=== PATIENT | female | born 2000 | race Caucasian/White ===

== ENCOUNTER 2023-02-01 03:34 | Emergency (ER) | payer OTHER, SELFPAY ==
[2023-02-01 03:37] VITALS: BP 110/77; PULSE 65; RESP 16; TEMP 36.4; O2SAT 97; BMI 20.8
--- NOTE | 2023-02-01 03:49 | ED_ITS ---
HPI - Ear Problem General Chief complaint: Ear Stated complaint: LT EAR PAIN Time Seen by Provider: 02/01/23 03:46 Mode of arrival: walk-in History of Present Illness HPI Narrative: presents complaining of ear pain that started last PM and also left pink eye. No visual complaint. Took Tylenol for the ear pain without relief. No headache or dizziness or vision complaint MD Complaint: Reports ear pain Related Data Home Medications Medication Instructions Recorded Confirmed drospirenone 3 mg-ethinyl tab 02/01/23 estradiol 0.02 mg tablet (Vestura (28)) Allergies Allergy/AdvReac Type Severity Reaction Status Date / Time Penicillins Allergy Intermediate Hives Verified 02/01/23 03:43 Review of Systems ROS Status of ROS 10 or more systems reviewed and unremarkable except as noted in history and below [facility] Social History Smoking status: Never smoker Exam Constitutional Vital Signs, click to edit/add: Last Vital Signs Temp 97.6 F 02/01/23 03:37 Pulse 65 02/01/23 03:37 Resp 16 02/01/23 03:37 BP 110/77 02/01/23 03:37 Pulse Ox 97 02/01/23 03:37 O2 Del Method Room Air 02/01/23 03:37 Common normals: no apparent distress, average body habitus, oriented x3, no limitations and healthy appearing HENMT Other: left TM red Eye Common normals: EOMs intact bilaterally Other: left conjunctiva injected Respiratory Common normals: normal respiratory effort, no retractions, no use of accessory muscles and clear to auscultation bilaterally Cardio Common normals: regular rate, regular rhythm, S1 normal heart sound and S2 normal heart sound GI Common normals: Normal to inspection, nondistended, normoactive bowel sounds present, soft to palpation and non-tender Extremity Common normals: normal to inspection and full ROM Neuro Common normals: oriented x3, CN's II-XII intact bilaterally, moves all extremities and no focal motor deficits Course Vital Signs Vital signs: Vital Signs Temperature 97.6 F 02/01/23 03:37 Pulse Rate 65 02/01/23 03:37 Respiratory Rate 16 02/01/23 03:37 Blood Pressure 110/77 02/01/23 03:37 Pulse Oximetry 97 02/01/23 03:37 Oxygen Delivery Method Room Air 02/01/23 03:37 Temperature 97.6 F 02/01/23 03:37 Pulse Rate 65 02/01/23 03:37 Respiratory Rate 16 02/01/23 03:37 Blood Pressure 110/77 02/01/23 03:37 Pulse Oximetry 97 02/01/23 03:37 Oxygen Delivery Method Room Air 02/01/23 03:37 Medical Decision Making MDM Narrative Medical decision making narrative: patient presents with left conjunctivitis and left otitis media. Discharged home with prescription for bactrim ds and tobramycin eye drops. Advised to follow up with her doctor for a recheck Discharge Plan Discharge Chief Complaint: Ear Clinical Impression: Donnelly eye disease of left eye, Otitis media Patient Disposition: Home, Self-Care Prescriptions / Home Meds: No Action drospirenone-ethinyl estradiol [Vestura (28)] 3-0.02 mg tablet Instructions: Ear Infection (ED), Conjunctivitis (ED) Stand Alone Forms: Portal Instructions Referrals: ADALGISA MELENDEZ [Primary Care Provider] - 1 week
[2023-02-01] MEDS: SULFAMETHOXAZOLE/TRIMETHOPRIM 800-160 MG TABLET 1 TAB PO (04:06)
[2023-02-01] MEDS: TOBRAMYCIN 0.3% OP SOL 100 DROP/5 ML BOTTLE OP (04:06)
== END 2023-02-01 04:10 | disposition home or self-care (01) ==
PROVIDERS: Emergency Provider Internal Medicine; PCP Family Medicine
DX: H66.92 Otitis media, unspecified, left ear (principal); H10.9 Unspecified conjunctivitis
CPT/HCPCS: 99283

== ENCOUNTER 2023-08-23 13:58 | Outpatient (OUT) | payer OTHER, SELFPAY ==
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
== END 2023-08-23 13:59 | disposition home or self-care (01) ==
PROVIDERS: PCP Family Medicine; Visit Provider Anesthesiology
DX: M48.062 Spinal stenosis, lumbar region with neurogenic claudication (principal)
CPT/HCPCS: G0463

== ENCOUNTER 2023-09-14 09:15 | Outpatient (OUT) | payer OTHER, SELFPAY ==
--- NOTE | 2023-09-14 09:17 | MR_ITS ---
[facility] [place] [id number] Patient Name: JOVANNY LANDON MRN: [id number] date: 2000 Sex: F Assigned Patient Location: MRI Current Patient Location: Accession/Order Number: [id number] Exam Date: 09/14/2023 09:50 Report Date: 09/15/2023 07:12 At the request of: OSCAR CHING Procedure: MR lumbar spine wo con EXAMINATION: MR lumbar spine wo con HISTORY: Lumbar Stenopsis With Neurogenic Claudication ; chronic back pain COMPARISON: No relevant comparison available. TECHNIQUE: A variety of imaging planes and parameters were utilized for visualization of suspected pathology. FINDINGS: For the purposes of numbering, sagittal T2 image # 8 extends from the T11 vertebral body superiorly to the S3 level inferiorly. PARASPINAL AREA: Normal with no visible mass. BONES: No fracture, pars defect, or osseous lesion. CORD/CAUDA EQUINA: Normal caliber, contour, and signal intensity. DISC LEVELS: 12-L1: No significant disc/facet abnormality, spinal stenosis, or foraminal stenosis. L1-L2: No significant disc/facet abnormality, spinal stenosis, or foraminal stenosis. L2-L3: No significant disc/facet abnormality, spinal stenosis, or foraminal stenosis. L3-L4: No significant disc/facet abnormality, spinal stenosis, or foraminal stenosis. L4-L5: No significant disc/facet abnormality, spinal stenosis, or foraminal stenosis. L5-S1: No significant disc/facet abnormality, spinal stenosis, or foraminal stenosis. MR/MR lumbar spine wo con IMPRESSION: Normal MRI of lumbar spine. No suspicious findings. Electronically authenticated by: ALON MURPHY Date: 09/15/2023 07:12
--- OUTSIDE RECORDS SUMMARY | 2023-09-14 09:36 | XMS_ITS | CCD ---
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 albumin/glob ulin mass ratioOrdered By: Brian Rodríguez on 12-30-2021 Albumin/Globulin [Mass ratio] 1.2 {ratio} [facility] Serum or plasma alkaline xavier sphatase measurement (enzymatic activity/volume)Ordered By: Brian Rodríguez on 12-30-2021 ALP [Catalytic activity/Vol] 52 U/L 32-92 [facility] Serum or plasma anion gap de terminationOrdered By: Brian Rodríguez on 12-30-2021 Anion gap [Moles/Vol] 14.7 mmol/L 6.0-15.0 [facility] Serum or plasma aspartate am inotransferase measurement (enzymatic activity/volume)Ordered By: Brian Rodríguez on 12-30-2021 AST [Catalytic activity/Vol] 17 U/L 10-42 [facility] Serum or plasma calcium zamzam urement (mass/volume)Ordered By: Brian Rodríguez on 12-30-2021 Calcium [Mass/Vol] 9.5 mg/dL 8.2-10.2 [facility] Serum or plasma chloride johan surement (moles/volume)Ordered By: Brian Rodríguez on 12-30-2021 Chloride [Moles/Vol] 99 mmol/L 95-114 [facility] Serum or plasma high density lipoprotein (HDL) cholesterol measurementOrdered By: Brian Rodríguez on 12-30-2021 Cholesterol in HDL [Mass/Vol] 67 mg/dL 35-85 [facility] Comment on above: HDL CHOL ATP-III CLA SSIFICATION Cardiovascular Risk HDL > or equal to 60 mg/dL LOW HDL < 40 mg/dL HIGH Serum or plasma potassium me asurement (moles/volume)Ordered By: Brian Rodríguez on 12-30-2021 Potassium [Moles/Vol] 3.8 mmol/L 3.5-5.1 [facility] Serum or plasma sodium measu rement (moles/volume)Ordered By: Brian Rodríguez on 12-30-2021 Sodium [Moles/Vol] 132 mmol/L 136-146 [facility] Serum or plasma total biliru bin measurement (mass/volume)Ordered By: Brian Rodríguez on 12-30-2021 Bilirubin [Mass/Vol] 1.9 mg/dL 0.3-1.2 [facility] Comment on above: Samples from patient s who have taken Naproxen have shown spurious elevation in Total Bilirubin levels. A metabolite of Naproxen, O-desmethylnaproxen, has been shown to interfere with the Jennaeem-Flor method for measuring Total Bilirubin. Serum or plasma total carbon dioxide measurement (moles/volume)Ordered By: Brian Rodríguez on 12-30-2021 CO2 [Moles/Vol] 22.1 mmol/L 22.0-30.0 [facility] Serum or plasma total choles terol/high density lipoprotein (HDL) cholesterol mass ratOrdered By: Brian Rodríguez on 12-30-2021 Cholesterol.total/Cho lesterol in HDL [Mass ratio] 2.8 {ratio} <5.0 [facility] Serum or plasma urea nitroge n measurement (mass/volume)Ordered By: Brian Rodríguez on 12-30-2021 Urea nitrogen [Mass/Vol] 9 mg/dL 01-02 [facility] Vital Signs Date Time Vital Sign Value Performing Clinician Facility 01-28-2023 13:00-0400 Body weight 56.7 kg [facility] Other [employer] Other 12-28-2022 09:00-0400 Body height 165.1 cm [facility] Other [facility] [facility] Other 12-28-2022 09:00-0400 Body mass index (BMI) [Ratio] 21.13 kg/m2 [facility] Other [facility] [facility] Other 12-28-2022 09:00-0400 Body weight 57.61 kg [facility] Other [employer] Other 12-21-2022 18:40-0400 Diastolic blood pressure 70 mm[Hg] DO Vee Gore Work Phone: [facility] 12-21-2022 18:40-0400 Heart rate 84 /min DO Vee Gore Work Phone: [facility] 12-21-2022 18:40-0400 Respiratory rate 18 /min DO Vee Gore Work Phone: [facility] 12-21-2022 18:40-0400 SaO2% (BldA) [Mass fraction] 98 % DO Vee Gore Work Phone: [facility] 12-21-2022 18:40-0400 Systolic blood pressure 119 mm[Hg] DO Vee Gore Work Phone: [facility] 12-21-2022 14:45-0400 Body height 165.1 cm DO Vee Gore Work Phone: [facility] 12-21-2022 14:45-0400 Body temperature 98.9 [degF] DO Vee Gore Work Phone: [facility] 12-21-2022 14:45-0400 Body weight 58.96 kg DO Vee Gore Work Phone: [facility] 12-11-2022 10:00-0400 Body height 165.1 cm Nel Knight Other [employer] Other 12-11-2022 10:00-0400 Body mass index (BMI) [Ratio] 21.13 kg/m2 Nel Knight Other [employer] Other 12-11-2022 10:00-0400 Body temperature 98.4 [degF] Nel Knight Other [employer] Other 12-11-2022 10:00-0400 Body weight 57.61 kg Nel Knight Other [employer] Other 12-11-2022 10:00-0400 Diastolic blood pressure 71 mm[Hg] Nel Knight Other [employer] Other 12-11-2022 10:00-0400 Respiratory rate 18 /min Nel Knight Other [facility] [facility] Other 12-11-2022 10:00-0400 SaO2% (BldA) [Mass fraction] 99 % Nel Knight Other [employer] Other 12-11-2022 10:00-0400 Systolic blood pressure 118 mm[Hg] Nel Knight Other [employer] Other 06-05-2022 14:28-0500 Blood Pressure Location Karen NILL [facility] [place] 06-05-2022 14:28-0500 bodymassindex 0.16 Karen NILL [facility] Comment on above: Result Comment: ^~:!ZScore Source [facility] 06-05-2022 14:28-0500 Diastolic blood pressure 78 mm[Hg] Karen NILL [facility] [place] 06-05-2022 14:28-0500 Heart rate 70 /min Karen NILL [facility] [place] 06-05-2022 14:28-0500 Height/Length Percentile 56.53 Karen NILL [facility] Comment on above: Result Comment: ^~:!Percentile Source -[facility] 06-05-2022 14:28-0500 Height/Length Z-Score 0.16 Karen NILL [facility] Comment on above: Result Comment: ^~:!ZScore Source -[facility] 06-05-2022 14:28-0500 Respiratory rate 16 /min Karen NILL [facility] [place] 06-05-2022 14:28-0500 Systolic blood pressure 106 mm[Hg] Karen PARHAML [facility] [place] 06-05-2022 14:28-0500 Weight Percentile 57.84 % Karen PARHAML [facility] [place] Comment on above: Result Comment: ^~:!Percentile Source -[facility] 06-05-2022 14:28-0500 Weight Z-Score 0.20 Karen PARHAML [facility] [place] Comment on above: Result Comment: ^~:!ZScore Source [facility] 09-29-2021 12:45-0400 Body height 165.1 cm Nel Antonia Other [employer] Other 09-29-2021 12:45-0400 Body mass index (BMI) [Ratio] 21.63 kg/m2 Nel Antonia Other [employer] Other 09-29-2021 12:45-0400 Body temperature 97.8 [degF] Nel Antonia Other [employer] Other 09-29-2021 12:45-0400 Body weight 58.97 kg [employer] Other [employer] Other 09-29-2021 12:45-0400 Respiratory rate 18 /min Nel Antonia Other [employer] Other 09-29-2021 12:45-0400 SaO2% (BldA) [Mass fraction] 98 % Nel Antonia Other [employer] Other Encounters Encounter Date Encounter Type Care Provider Facility Start: 08-23-2023 End: 08-24-2023 ambulatory Elmer [facility] Start: 08-16-2023 End: 08-17-2023 ambulatory Ejniffer L Héctor Facility: [facility] Start: 05-31-2023 End: 05-31-2023 ambulatory EZIO GALLEGOS Not Available Start: 01-28-2023 End: 01-28-2023 ambulatory Mary Yuen Other [facility] [employer] Other Start: 01-28-2023 Office outpatient visit 15 minutes Mary Yuen [facility] Start: 01-20-2023 End: 01-21-2023 ambulatory Jeniffer L Héctor Facility: [facility] Start: 12-28-2022 Office outpatient ne w 30 minutes [employer] [facility] Start: 12-28-2022 End: 12-29-2022 ambulatory Mary [employer] [facility] [employer] Other Start: 12-21-2022 End: 12-21-2022 Emergency department patient visit Darshan Hillman Facility:[facility] Start: 12-21-2022 End: 12-21-2022 Emergency department patient visit DO Vee Gore Work Phone: [facility] Work Phone: Start: 12-11-2022 End: 12-11-2022 ambulatory Nel Knight Other [facility] [employer] Other Start: 12-11-2022 Office outpatient visit 15 minutes Nel Knight [facility] Start: 07-07-2022 End: 07-07-2022 Patient encounter procedure Karen WARNER [facility] [place] Start: 06-24-2022 End: 06-24-[address] KAREN WARNER . Facility: Start: 06-05-2022 End: 06-05-2022 Patient encounter procedure Karen WARNER [facility] [place] Start: 05-10-2022 End: 05-11-[address] CHRISTI MONROE . Facility: Start: 12-30-2021 End: 12-30-2021 Departed Referred MD Christi Monroe Work Phone: [facility] [address] Start: 09-29-2021 End: 09-29-2021 ambulatory Nel Knight Other [employer] Other Start: 09-29-2021 Office outpatient ne w 20 minutes Nel Knight [facility] Start: 12-28-2017 End: 12-29-2017 Patient encounter DEFAULT PHYSICIAN Facility:[facility] Start: 11-12-2017 End: 11-13-2017 Patient encounter DEFAULT PHYSICIAN Facility:[facility] Procedures Date Procedure Procedure Detail Performing [...] Plain X-ray of left wrist DO Vee Alvord on Work Phone: Start: 12-21-2022 X-ray of left ankle DO Vee Gore Work Phone: Start: 06-24-2022 Esophagogastroduodenoscopy Karen WARNER Extraction of wisdom tooth M ichael NILL Tonsillectomy and adenoidectomy Karen NILL Plan of Treatment Date Care Activity Detail Author Patient Education Head injury in adults Low Back Pain ED Concussion, Adult ED Cervical Sprain ED [facility] Work Phone: Patient referral [facility] Work Phone: Immunizations Immunization Date Immunization Notes Care Provider Fa cili 10-04-2020 meningococcal B vaccine, fully recombinant Karen NILL [facility] 08-29-2020 meningococcal B vaccine, fully recombinant Karen NILL [facility] 05-30-2020 hepatitis A vaccine, unspecified formulation Karen NILL [facility] 05-30-2020 HPV, unspecified formulation Karen NILL [facility] 05-30-2020 varicella virus vaccine Jace aeemeka NILL [facility] 01-26-2020 HPV, unspecified formulation Karen NILL [facility] 11-22-2019 hepatitis A vaccine, unspecified formulation Karen NILL [facility] 11-22-2019 HPV, unspecified formulation Karen NILL [facility] 11-22-2019 meningococcal ACWY vaccine, unspecified formulation Karen NILL [facility] 11-15-2013 tetanus toxoid, redu bg diphtheria toxoid, and acellular pertussis vaccine, adsorbed Karen NILL [facility] 07-07-2007 DTaP, unspecified formulation Karen NILL [facility] 07-07-2007 measles, mumps and rubella virus vaccine Karen NILL [facility] 07-07-2007 poliovirus vaccine, unspecified formulation Karen NILL [facility] 07-07-2007 varicella virus vaccine Jace ael NILL [facility] 10-17-2003 DTaP, unspecified formulation Karen NILL [facility] 10-17-2003 Hib, unspecified formulation Karen NILL [facility] 07-13-2003 Hib, unspecified formulation Karen NILL [facility] 07-13-2003 measles, mumps and rubella virus vaccine Karen NILL [facility] 2002 DTaP, unspecified formulation Karen NILL [facility] 2002 hepatitis B vaccine, pediatric or pediatric/adolescent dosage Karen NILL [facility] 2002 poliovirus vaccine, unspecified formulation Karen NILL [facility] 2002 DTaP, unspecified formulation Karen NILL [facility] 2002 hepatitis B vaccine, pediatric or pediatric/adolescent dosage Karen NILL [facility] 2002 poliovirus vaccine, unspecified formulation Karen NILL [facility] 2002 DTaP, unspecified formulation Karen NILL [facility] 2002 hepatitis B vaccine, pediatric or pediatric/adolescent dosage Karen NILL [facility] 2002 poliovirus vaccine, unspecified formulation Karen WARNER [facility] 2002 hepatitis B vaccine, pediatric or pediatric/adolescent dosage Karen WARNER [facility] NEGATED: Highlighted row has not occurred!06-05-2022 influenza virus vaccine, unspecified formulation Karen WARNER [facility] [place] Payers Date Payer Category Payer Self-pay [id number] 2021 Unknown 2002 Unknown [id number] 2002 Unknown [id number] 2002 Unknown [id number] 2002 Unknown [id number] 2002 Unknown [id number] 2002 Unknown [id number] 2002 Unknown [id number] 1959 Unknown [id number] 2.1 [id number] Unknown [facility] [id number] Unknown Regular Auto/Liability [id number] Unknown [id number] Unknown [id number] Social History Date Type Detail Facility Sex Assigned At [facility] Start: 02-27-2019 End: 12-21-2022 Tobacco smoking status NHIS Never smoked tobacco (finding) [facility] Start: 2002 Sex Assigned At Female F [facility] Tobacco smoking status Never Gener al [facility] [place] Functional Status Date Assessment Result Facility 06-05-2022 Functional Status N/A [facility] Clinical Notes 09-29-2021 to 01-28-2023 Note Date & Type Note Facility 01-28-2023 Evaluation note Encounter Date Diagnosis Assessment Notes Jan, Acute strain of neck muscle, subsequent encounter (ICD-10 - S16.1XXD) Will refer to Physical Therapy Follow up as needed Jan, Cervical pain (neck) (ICD-10 - M54.2) [facility] Other 09-18-2023 Evaluation note* Encounter Date Diagnosis [...] M25.511) Will order xray of Right shoulder. Dec, Cervical pain (ICD-10 - M54.2) [facility] [facility] Other 09-01-2023 Evaluation note* Encounter Date Diagnosis [...] no improvement in 2 to 3 days [facility] Other 03-15-2023 NoteOPERATIVE NOTE OPERATION DATE: 06/24/2022 [...] cm. There was mild distal esophagitis without Aradna's changes. Upon withdrawal of the scope, mucosal surfaces were carefully examined. The remainder of the esophagus was unremarkable, except for a small inlet patch of esophagitis. The scope was then withdrawn. Patient tolerated procedure well, was sent to recovery room in good condition. CC: Christi Monroe M.D.[id number] Evaluation note* Encounter Date Diagnosis Assessment Notes [...] no improvement in 2 to 3 days. [employer] Other Evaluation + Plan note No data available for this section [facility] [place] Evaluation noteNo assessment information available [facility] Work Phone: [facility] general Narrative - Reported* Type Description Date Medical History eczema Surgical History T & A [employer] Other History general Narrative - Reported* Type Description Date Medical History eczema Surgical History T & A Surgical History wisdom teeth [facility] Discharge instructions No data available for this section [facility] Discharge instructions Additional Instructions Ice 30 minutes on 30 minutes off anything that is sore for the next 24 hours then you can switch to heat. You may alternate Motrin and Tylenol every 4 hours as needed for pain. [facility] Work Phone: Progress note No data available for this section General Surgery [place] Summary Purpose Family History No Family History [...] section and content) DATE CREATED AUTHOR 01/24/2018 [facility] DATE CREATED AUTHOR AUTHOR'S ORGANIZ ATION 07/01/2022 [facility] DATE CREATED AUTHOR AUTHOR'S ORGANIZ ATION 01/01/2023 [facility] DATE CREATED AUTHOR AUTHOR'S ORGANIZ ATION 06/01/2023 [facility] EPIC DATE CREATED AUTHOR AUTHOR'S ORGANIZ ATION 08/26/2023 [facility] DATE CREATED AUTHOR AUTHOR'S ORGANIZ ATION 08/26/2023 [facility] REASON FOR VISIT (unrecogniz ed section and content) GAONA RUBY, SINUS CONGESTION, COUGHrash right armER f/uER f/uf/u shoulder/ neck pain xray results Care Teams (unrecognized sec tion and content) Team Status: Inactive Member Role Status Dates Christi Monroe MD Primary Care Provider Active Brian Rodríguez DO [facility] Attending Provider Active Team Status: Active Member Role Status Dates Christi Monroe MD Primary Care Provider Active Team Status: Active Member Role Status Dates Darshan Hillman MD Primary Care Provider Active Team Status: Inactive Member Role Status Dates Vee Gore DO Emergency Provider Active Darshan Hillman [...] BE BASED ON THE PRIMARY CLINICAL RECORDS. [facility] [employer] [facility] provides no warranty or guarantee of the accuracy or completeness of information in this document.
== END 2023-09-14 09:16 | disposition home or self-care (01) ==
LOC: MRI 09:15
PROVIDERS: PCP Family Medicine; Visit Provider Anesthesiology
DX: M48.062 Spinal stenosis, lumbar region with neurogenic claudication (principal)
CPT/HCPCS: 72148

== ENCOUNTER 2023-11-03 11:25 | Outpatient (OUT) | payer OTHER, SELFPAY ==
--- OUTSIDE RECORDS SUMMARY | 2023-11-03 11:43 | XMS_ITS | CCD ---
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 Rodríguez on 12-30-2021 ALT No additional P-5'-P [Catalytic activity/Vol] 16 U/L 10-60 [facility] Serum or plasma albumin/glob ulin mass ratioOrdered By: Brian Rodríguez on 12-30-2021 Albumin/Globulin [Mass ratio] 1.2 {ratio} [facility] Serum or plasma alkaline xavier sphatase measurement (enzymatic activity/volume)Ordered By: Brian Rodríguez on 12-30-2021 ALP [Catalytic activity/Vol] 52 U/L 32-92 [facility] Serum or plasma anion gap de terminationOrdered By: Brian Rodríguez on 12-30-2021 Anion gap [Moles/Vol] 14.7 mmol/L 6.0-15.0 [facility] Serum or plasma aspartate am inotransferase measurement (enzymatic activity/volume)Ordered By: Brian Rodríguez on 12-30-2021 AST [Catalytic activity/Vol] 17 U/L 10-42 [facility] Serum or plasma calcium zamzam urement (mass/volume)Ordered By: Brian Rodríguez on 12-30-2021 Calcium [Mass/Vol] 9.5 mg/dL 8.2-10.2 [facility] Serum or plasma chloride johan surement (moles/volume)Ordered By: Brian Rodríguez on 12-30-2021 Chloride [Moles/Vol] 99 mmol/L 95-114 [facility] Serum or plasma high density lipoprotein (HDL) cholesterol measurementOrdered By: Brian Rodríguez on 12-30-2021 Cholesterol in HDL [Mass/Vol] 67 mg/dL 35-85 [facility] Comment on above: HDL CHOL ATP-III CLA SSIFICATION Cardiovascular Risk HDL > or equal to 60 mg/dL LOW HDL < 40 mg/dL HIGH Serum or plasma potassium me asurement (moles/volume)Ordered By: Brian Rodríguez on 12-30-2021 Potassium [Moles/Vol] 3.8 mmol/L 3.5-5.1 [facility] Serum or plasma sodium measu rement (moles/volume)Ordered By: Brian Rodríguez on 12-30-2021 Sodium [Moles/Vol] 132 mmol/L 136-146 [facility] Serum or plasma total biliru bin measurement (mass/volume)Ordered By: Brian Rodríguez on 12-30-2021 Bilirubin [Mass/Vol] 1.9 mg/dL 0.3-1.2 [facility] Comment on above: Samples from patient s who have taken Naproxen have shown spurious elevation in Total Bilirubin levels. A metabolite of Naproxen, O-desmethylnaproxen, has been shown to interfere with the Kojo-Flor method for measuring Total Bilirubin. Serum or plasma total carbon dioxide measurement (moles/volume)Ordered By: Brian Rodríguez on 12-30-2021 CO2 [Moles/Vol] 22.1 mmol/L 22.0-30.0 [facility] Serum or plasma total choles terol/high density lipoprotein (HDL) cholesterol mass ratOrdered By: Brian Rodríguez on 12-30-2021 Cholesterol.total/Cho lesterol in HDL [Mass ratio] 2.8 {ratio} <5.0 [facility] Serum or plasma urea nitroge n measurement (mass/volume)Ordered By: Brian Rodríguez on 12-30-2021 Urea nitrogen [Mass/Vol] 9 mg/dL 01-02 [facility] Vital Signs Date Time Vital Sign Value Performing Clinician Facility 01-28-2023 13:00-0400 Body weight 56.7 kg [facility] Other [facility] Other 12-28-2022 09:00-0400 Body height 165.1 cm [facility] Other [facility] Other 12-28-2022 09:00-0400 Body mass index (BMI) [Ratio] 21.13 kg/m2 [facility] Other [facility] Other 12-28-2022 09:00-0400 Body weight 57.61 kg [facility] Other [facility] Other 12-21-2022 18:40-0400 Diastolic blood pressure 70 mm[Hg] DO Vee Gore Work Phone: [facility] 12-21-2022 18:40-0400 Heart rate 84 /min DO Vee Gore Work Phone: [facility] 12-21-2022 18:40-0400 Respiratory rate 18 /min DO Vee Gore Work Phone: [facility] 12-21-2022 18:40-0400 SaO2% (BldA) [Mass fraction] 98 % DO Vee Gore Work Phone: [facility] 12-21-2022 18:40-0400 Systolic blood pressure 119 mm[Hg] DO Vee Gore Work Phone: [facility] 12-21-2022 14:45-0400 Body height 165.1 cm DO Vee Gore Work Phone: [facility] 12-21-2022 14:45-0400 Body temperature 98.9 [degF] DO Vee Gore Work Phone: [facility] 12-21-2022 14:45-0400 Body weight 58.96 kg DO Vee Gore Work Phone: [facility] 12-11-2022 10:00-0400 Body height 165.1 cm Nel Knight Other [facility] Other 12-11-2022 10:00-0400 Body mass index (BMI) [Ratio] 21.13 kg/m2 Nel Knight Other [facility] Other 12-11-2022 10:00-0400 Body temperature 98.4 [degF] Nel Knight Other [facility] Other 12-11-2022 10:00-0400 Body weight 57.61 kg Nel Knight Other [facility] Other 12-11-2022 10:00-0400 Diastolic blood pressure 71 mm[Hg] Nel Knight Other [facility] Other 12-11-2022 10:00-0400 Respiratory rate 18 /min Nel Knight Other [facility] Other 12-11-2022 10:00-0400 SaO2% (BldA) [Mass fraction] 99 % Nel Knight Other [facility] Other 12-11-2022 10:00-0400 Systolic blood pressure 118 mm[Hg] Nel Knight Other [facility] Other 06-05-2022 14:28-0500 Blood Pressure Location Karen [employer] [facility] [place] 06-05-2022 14:28-0500 bodymassindex 0.16 Karen NILL [facility] Comment on above: Result Comment: ^~:!ZScore [employer] [facility] 06-05-2022 14:28-0500 Diastolic blood pressure 78 mm[Hg] Karen PARHAML [facility] [place] 06-05-2022 14:28-0500 Heart rate 70 /min Karen NILL [facility] [place] 06-05-2022 14:28-0500 Height/Length Percentile 56.53 Karen NILL [facility] Comment on above: Result Comment: ^~:!Percentile Source -[facility] 06-05-2022 14:28-0500 Height/Length Z-Score 0.16 Karen NILL [facility] Comment on above: Result Comment: ^~:!ZScore Source -[facility] 06-05-2022 14:28-0500 Respiratory rate 16 /min Karen PARHAML [facility] 06-05-2022 14:28-0500 Systolic blood pressure 106 mm[Hg] Karen NILL [facility] [place] 06-05-2022 14:28-0500 Weight Percentile 57.84 % Karen NILL [facility] [place] Comment on above: Result Comment: ^~:!Percentile Source [facility] 06-05-2022 14:28-0500 Weight Z-Score 0.20 Karen NILL [facility] [place] Comment on above: Result Comment: ^~:!ZScore [facility] 09-29-2021 12:45-0400 Body height 165.1 cm Nel Knight Other [facility] Other 09-29-2021 12:45-0400 Body mass index (BMI) [Ratio] 21.63 kg/m2 Nel Knight Other [facility] Other 09-29-2021 12:45-0400 Body temperature 97.8 [degF] Nel Antonia Other [facility] Other 09-29-2021 12:45-0400 Body weight 58.97 kg Nel Knight Other [facility] Other 09-29-2021 12:45-0400 Respiratory rate 18 /min Nel Knight Other [facility] Other 09-29-2021 12:45-0400 SaO2% (BldA) [Mass fraction] 98 % Nel Knight Other [facility] Other Encounters Encounter Date Encounter Type Care Provider Facility Start: 08-23-2023 End: 08-24-2023 ambulatory Elmer Rodríguez MD Facility: [facility] Start: 08-16-2023 End: 08-16-2023 ambulatory Jeniffer Anaya Facility: [facility] Start: 05-31-2023 End: 05-31-2023 ambulatory ZEIO GALLEGOS Not Available Start: 01-28-2023 End: 01-28-2023 ambulatory [facility] Other [facility] Other Start: 01-28-2023 Office outpatient visit 15 minutes [facility] Start: 01-20-2023 End: 01-20-2023 ambulatory Jeniffer Anaya Facility:[facility] Jolanta smith Start: 12-28-2022 Office outpatient ne w 30 minutes [facility] Start: 12-28-2022 End: 12-28-2022 ambulatory [facility] [employer] Other Start: 12-21-2022 End: 12-21-2022 Emergency department patient visit Darshan Hillman Facility:[facility] Start: 12-21-2022 End: 12-21-2022 Emergency department patient visit DO Vee Gore Work Phone: [facility] Work Phone: Start: 12-11-2022 End: 12-11-2022 ambulatory Nel Knight Other [facility] Other Start: 12-11-2022 Office outpatient visit 15 minutes Nel Knight [facility] Start: 07-07-2022 End: 07-07-2022 Patient encounter procedure Karen WARNER [facility]ofia [facility] Start: 06-24-2022 End: 06-24-[address] KAREN WARNER . Facility: Start: 06-05-2022 End: 06-05-2022 Patient encounter procedure Karen WARNER [facility] N[facility]aid [facility] Start: 05-10-2022 End: 05-11-[address] CHRISTI MONROE . Facility: Start: 12-30-2021 End: 12-30-2021 Departed Referred MD Christi Monroe Work Phone: [facility] [address] Start: 09-29-2021 End: 09-29-2021 ambulatory Nel Knight Other [facility] Other Start: 09-29-2021 Office outpatient ne w 20 minutes Nel Knight [facility] Start: 12-28-2017 End: 12-29-2017 Patient encounter DEFAULT PHYSICIAN Facility:[facility] Start: 11-12-2017 End: 11-13-2017 Patient encounter DEFAULT PHYSICIAN Facility:[facility] Procedures Date Procedure Procedure Detail Performing Clinician [...] Plain X-ray of left wrist DO Vee [place] on Work Phone: Start: 12-21-2022 X-ray of left ankle DO Vee Gore Work Phone: Start: 06-24-2022 Esophagogastroduodenoscopy Karen NILL Extraction of wisdom tooth M analisa NILL Tonsillectomy and adenoidectomy Karen NILL Plan of Treatment Date Care Activity Detail Author Patient Education Head injury in adults Low Back Pain ED Concussion, Adult ED Cervical Sprain ED [facility] Work Phone: Patient referral [facility] Work Phone: Immunizations Immunization Date Immunization Notes Care Provider Fa cility 10-04-2020 meningococcal B vaccine, fully recombinant Karen NILL [facility] 08-29-2020 meningococcal B vaccine, fully recombinant Karen NILL [facility] 05-30-2020 hepatitis A vaccine, unspecified formulation Karen NILL [facility] 05-30-2020 HPV, unspecified formulation Karen NILL [facility] 05-30-2020 varicella virus vaccine Jace aeemeka NILL [facility] 01-26-2020 HPV, unspecified formulation Karen NILL [facility] 11-22-2019 hepatitis A vaccine, unspecified formulation Karen NILL [facility] 11-22-2019 HPV, unspecified formulation Karen NILL [facility] 11-22-2019 meningococcal ACWY vaccine, unspecified formulation Karen NILL [facility] 11-15-2013 tetanus toxoid, redu bg diphtheria toxoid, and acellular pertussis vaccine, adsorbed Karen NILL [facility] 07-07-2007 DTaP, unspecified formulation Karen NILL [facility] 07-07-2007 measles, mumps and rubella virus vaccine Karen NILL [facility] 07-07-2007 poliovirus vaccine, unspecified formulation Karen NILL [facility] 07-07-2007 varicella virus vaccine Jace ael NILL [facility] 10-17-2003 DTaP, unspecified formulation Karen NILL [facility] 10-17-2003 Hib, unspecified formulation Karen NILL [facility] 07-13-2003 Hib, unspecified formulation Karen NILL [facility] 07-13-2003 measles, mumps and rubella virus vaccine Karen NILL [facility] 2002 DTaP, unspecified formulation Karen NILL [facility] 2002 hepatitis B vaccine, pediatric or pediatric/adolescent dosage Karen NILL [facility] 2002 poliovirus vaccine, unspecified formulation Karen NILL [facility] 2002 DTaP, unspecified formulation Karen NILL [facility] 2002 hepatitis B vaccine, pediatric or pediatric/adolescent dosage Karen NILL [facility] 2002 poliovirus vaccine, unspecified formulation Karen NILL [facility] 2002 DTaP, unspecified formulation Karen WARNER [facility] 2002 hepatitis B vaccine, pediatric or pediatric/adolescent dosage Karen PARHAML [facility] 2002 poliovirus vaccine, unspecified formulation Karen PARHAML [facility] 2002 hepatitis B vaccine, pediatric or pediatric/adolescent dosage Karen PARHAML [facility] NEGATED: Highlighted row has not occurred!06-05-2022 influenza virus vaccine, unspecified formulation Karen WARNER [facility] [place] Payers Date Payer Category Payer Self-pay [id number] 2021 Unknown 2002 Unknown [id number] 2002 Unknown [id number] 2002 Unknown [id number] 2002 Unknown [id number] 2002 Unknown [id number] 2002 Unknown [id number] 2002 Unknown [id number] 1959 Unknown [id number] 2.1 [id number] Unknown [facility] [place] [id number] Unknown Regular Auto/Liability [id number] Unknown [id number] Unknown [id number] Social History Date Type Detail Facility Sex Assigned At [facility] Start: 02-27-2019 End: 12-21-2022 Tobacco smoking status NHIS Never smoked tobacco (finding) [facility] Start: 2002 Sex Assigned At Female F [facility] Tobacco smoking status Never [facility] [place] Functional Status Date Assessment Result Facility 06-05-2022 Functional Status N/A [facility] rgmelvin [facility] Clinical Notes 09-29-2021 to 01-28-2023 Note Date & Type Note Facility 01-28-2023 Evaluation note Encounter Date Diagnosis Assessment Notes Jan, Acute strain of neck muscle, subsequent encounter (ICD-10 - S16.1XXD) Will refer to Physical Therapy Follow up as needed Jan, Cervical pain (neck) (ICD-10 - M54.2) [facility] Other 09-18-2023 Evaluation note* Encounter Date Diagnosis [...] shoulder. Dec, Cervical pain (ICD-10 - M54.2) [facility] Other 09-01-2023 Evaluation note* Encounter Date Diagnosis [...] no improvement in 2 to 3 days [facility] Other 03-15-2023 NoteOPERATIVE NOTE OPERATION DATE: 06/24/2022 [...] in good condition. CC: Christi Monroe M.D.[id number] Evaluation note* Encounter Date Diagnosis Assessment Notes [...] no improvement in 2 to 3 days. [facility] Other Evaluation + Plan note No data available for this section [facility] [place] Evaluation noteNo assessment information available [facility] Work Phone: History general Narrative - Reported* Type Description Date Medical History eczema Surgical History T & A [facility] Other History general Narrative - Reported* Type Description Date Medical History eczema Surgical History T & A Surgical History wisdom teeth [facility] Other Hospital Discharge instructions No data available for this section [facility] Discharge instructions Additional Instructions Ice 30 minutes on 30 minutes off anything that is sore for the next 24 hours then you can switch to heat. You may alternate Motrin and Tylenol every 4 hours as needed for pain. [facility] Work Phone: Progress note No data available for this section [facility] [place] Summary Purpose Family History No Family History [...] section and content) DATE CREATED AUTHOR 01/24/2018 [facility] DATE CREATED AUTHOR AUTHOR'S ORGANIZ ATION 07/01/2022 [facility] DATE CREATED AUTHOR AUTHOR'S ORGANIZ ATION 01/01/2023 [facility] DATE CREATED AUTHOR AUTHOR'S ORGANIZ ATION 06/01/2023 [facility] EPIC DATE CREATED AUTHOR AUTHOR'S ORGANIZ ATION 08/26/2023 [facility] DATE CREATED AUTHOR AUTHOR'S ORGANIZ ATION 09/16/2023 [facility] REASON FOR VISIT (unrecogniz ed section and content) GAONA RUBY, SINUS CONGESTION, COUGHrash right armER f/uER f/uf/u shoulder/ neck pain xray results Care Teams (unrecognized sec tion and content) Team Status: Inactive Member Role Status Dates Christi Monroe MD Primary Care Provider Active Brian Rodríguez DO [facility] Attending Provider Active Team Status: Active Member [...] BE BASED ON THE PRIMARY CLINICAL RECORDS. [facility] [employer] [facility]. provides no warranty or guarantee of the accuracy or completeness of information in this document.
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
== END 2023-11-03 11:26 | disposition home or self-care (01) ==
LOC: PM 11:25
PROVIDERS: PCP Family Medicine; Visit Provider Nurse Practitioner
DX: M79.18 Myalgia, other site (principal); M54.50 Low back pain, unspecified
CPT/HCPCS: G0463